=== PATIENT | male | born 1975 | race African-American/Black ===

== ENCOUNTER 2017-10-13 20:55 | Inpatient (IN) | payer MEDICAID, OTHER ==
--- NOTE | 2017-10-13 22:14 | ED ---
General Adult HPI - General Chief complaint: Psychiatric Symptoms Stated complaint: Petition Time Seen by Provider: 10/13/17 21:38 Source: patient, EMS, RN notes reviewed, old records reviewed Mode of arrival: EMS Limitations: no limitations - History of Present Illness Initial comments: She was sent in for examination. His counselors state that he has had some psychotic movements saying that he wants to be with his mother who is . The patient states he has no issues. - Related Data Home Medications Medication Instructions Recorded Confirmed QUEtiapine [SEROquel] 100 mg PO HS 10/13/17 10/13/17 lamoTRIgine [LaMICtal] 50 mg PO HS 10/13/17 10/13/17 Allergies Allergy/AdvReac Type Severity Reaction Status Date / Time No Known Allergies Allergy Verified 10/13/17 21:10 Review of Systems ROS Statement: Those systems with pertinent positive or pertinent negative responses have been documented in the HPI. review of systems at this time the patient's denying any problems. The patient was brought emergency room on a pickup order for psychiatric evaluation because of statements he made to his psych counselors. They're impression is depression , psychotic break. ROS Other: All systems not noted in ROS Statement are negative. Past Medical History Past Medical History: No Reported History Additional Past Medical History / Comment(s): DEPRESSION, BIPOLAR, schizophrenia History of Any Multi-Drug Resistant Organisms: None Reported Past Surgical History: No Surgical Hx Reported Past Anesthesia/Blood Transfusion Reactions: No Reported Reaction Past Psychological History: Bipolar, Depression, Schizophrenia Smoking Status: Current every day smoker Past Alcohol Use History: None Reported Past Drug Use History: None Reported General Exam - General Exam Comments Initial Comments: General: The patient is awake and alert, in no distress, and does not appear acutely ill. denying any problems states she was brought here against his will. The patient was on a pickup order for psychiatric evaluation for things he did and said. Vital signs stable Eye: pupils normal, extraocular movement normal. Ears, nose, mouth and throat: There are moist mucous membranes . Neck: The neck is supple, denies neck pain Cardiovascular: S1 and S2 no murmur Respiratory: lungs are clear. Denies any shortness of breath Gastrointestinal: denies nausea vomiting or diarrhea. Back: denying back pain. full range of motion of upper and lower extremities. Neurological: no evidence of any focal or lateralizing findings. Skin: Skin is warm and dry and no rashes or lesions are noted. Psychiatric: sent for psychiatric evaluation on a court-ordered pickup because of statements he said and behavior he was displaying. Patient was stating that he wanted to be with his mother who is . Limitations: no limitations Course Vital Signs 10/13/17 21:03 Temperature 98.9 F Pulse Rate 71 Respiratory 18 Rate Blood Pressure 127/67 O2 Sat by Pulse 96 Oximetry Medical Decision Making - Medical Decision Making Medical decision making; this is a patient who was a court-ordered pickup for evaluation by the psychiatric department. Psychiatric nurse evaluated the patient spoke with the psychiatrist and he'll be admitted to 3 . I have completed a certificate for admission. With a diagnosis of psychosis. Disposition Clinical Impression: Psychosis Disposition: TRANSFER TO PSYCH HOSP/UNIT Condition: Serious
[2017-10-13] MEDS ORDERED: ACETAMINOPHEN TAB 325 MG TAB PO PRN (23:18)
[2017-10-13] MEDS ORDERED: MAGNESIUM HYDROXIDE 2,400 MG/10 ML CUP PO PRN (23:18)
[2017-10-13] MEDS ORDERED: MAG HYDROX/AL HYDROX/SIMETH 30 ML CUP PO PRN (23:18)
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
[2017-10-14] MEDS: QUEtiapine 50 MG TAB PO SCH (12:36)
[2017-10-14 14:04] LABS: ALT 31 U/L (21-72); AST 27 U/L (17-59); Albumin 4.9 g/dL (3.5-5.0); Alkaline Phosphatase 91 U/L (38-126); Anion Gap 12 mmol/L; Blood Urea Nitrogen 12 mg/dL (9-20); Calcium 10.7 mg/dL (8.4-10.2); Carbon Dioxide 27 mmol/L (22-30); Chloride 102 mmol/L (98-107); Glucose 106 mg/dL (74-99); Potassium 4.5 mmol/L (3.5-5.1); Sodium 141 mmol/L (137-145); Total Bilirubin 2.8 mg/dL (0.2-1.3); Total Protein 7.9 g/dL (6.3-8.2)
[2017-10-14 14:19] LABS: T4, Free (Free Thyroxine) 1.45 ng/dL (0.78-2.19)
--- NOTE | 2017-10-14 14:45 | P.HP ---
Psychiatric H&P - . History & Physical: Allergies Allergy/AdvReac Type Severity Reaction Status Date / Time No Known Allergies Allergy Verified 10/13/17 21:10 Vital Signs Temp 97.9 F 10/14/17 07:16 Pulse 59 L 10/14/17 07:16 Resp 16 10/14/17 07:16 BP 115/60 10/14/17 07:16 Pulse Ox 98 10/14/17 00:39 Intake & Output 10/13/17 10/14/17 10/14/17 18:59 06:59 18:59 Weight 66.5 kg 66.5 kg Identifying Information: Mr. Enrike Bailey is a 42 year-old unemployed never male, who lives with his girlfriend, and has a past psychiatric history of schizophrenia. CC: "I don't know why this lady brought me here " History of Present Illness: The patient has been brought to the ED for psychiatric evaluation based on a petition by his returned case inspector at [facility]. The patient left to the returned case inspector more than 15 voicemails and just couple of hours and was a stating that he wanted talk to her. The patient was talking about seeing ghosts at his house and who was talking to the mother. It is not known that if patient has been taking his psychiatric medication or no but he is recently started on Seroquel and Lamictal by [facility] providers. The patient was presented very irritable but redirected. He was loud with racing thoughts and flight of ideas moving around at the exam room and couldn't sit still. The patient reported has been seeing orbs at his house and he has been feeling as "many people talking in my head". He couldn't recognize what this voices talking about but he felt very stressed about the voices. Initially, he was angry about admission, but he agreed to received better help for adjustment of medications and stabilizer his symptoms and he signed voluntary admission. Patient presented very paranoid and reported feeling paranoid around people. He reported high anxiety with no stop racing thoughts. He reported very poor and interrupted sleep for past few weeks and he believes lost good amount of weight because he is not eating good. Patient denies feeling hopeless, worthless, or helpless. Patient denies lack of interest, or poor energy. Patient reported no suicidal thought, plans or intentions. Patient denies obsessions, panic attacks, nightmares, flashbacks, hyper vigilance, avoidance behavior, or any specific phobias. Past Psychiatric History: Hospitalizations: Multiple prior psychiatric hospitalizations at least more than 7-8 times. Reported his first hospitalization was at early 20s. As per [facility] , he has 7 hospitalizations from 2001 till 2015. He was admitted at the same unit in 2015 which was his last hospitalization. Medications Trials: Reported he will not take any Zyprexa or Depakote because he was maintained on both medications for more than 20 years and they are not working for him. He was recently on Seroquel and Lamictal as per [facility] report Prior Psychiatrist: Last time seen by a psychiatrist was July 2017 at [facility] Prior Suicidal attempts/ Thoughts: Reported prior suicidal attempts "when I was younger, I tried to cut myself" Prior Self injurious behavior: Denies. Substance use history: Alcohol: very infrequent, might be once every couple of months. Last time was yesterday when he used 1-2 beers Opiate: Denies Cocaine: Denies Cannabis: Very infrequent used of marijuana, reported on regular basis every month or every other month. He reported had smoked marijuana yesterday Nicotine: 0.5 PPD for about 20 years Prior SUDs Treatment including: denies any prior drug treatment either inpatient or outpatient. Family history: Family history of mental illnesses: Mother and 2 of his sisters suffered from mental illnesses but not sure what was their diagnoses. Mother last year Family history of suicidal: Denies any Family history of SUDs: denies up to his knowledge Social History: Current living situation: Lives at his own place for about 3 years. He lives with his girlfriend for past 20 years Employment: unemployed, on SSD Education: up to 9th grade Recreational interest: Sports, Movies Legal history: Denies any legal problems or have been arrested for past 12 months. He reported was arrested for 17 days last year but no clear for what reasons. Past history of trauma (physical/psychological/sexual): Patient denies history of abuse, or any psychological trauma. Past medical history:Denies any Allergies: Denies any food allergy. NKDA Mental status examination; Appearance: The patient appears stated age, disheveled in hospital gown, no specific features. Gait/posture:normal gait, Normal arm was swinging: No abnormal movements. Attitude and behavior: not fully engaged, partially cooperative, good eye contact. Motor activity: agitated and increased activities Speech:Loud, pressured and sometimes bizarre with flight of ideas Mood:irritable and agitated Affect: Expansive Thought form: flight of ideas, circumstantial Thought content: Paranoid ideation, denies suicidal thoughts, denies homicidal thoughts, denies intentions or plans. Perception: Reported auditory and visual hallucinations Attention: No impairment. Patient was able to repeat serial 5. Orientation: Patient patient was fully oriented to time place person and situation. Insight: Patient has limited insight about his psychiatric disorder. Judgment: Patient has limited judgment about his psychiatric treatment. History of Violence to self/others: Patient denies any history of violence or aggression toward self or others in the past 6 months. Patient strengths: Optimism to change. SSD. Housing. Access to services Patient weaknesses: Poor coping skills. Poor compliance with treatment. Financial [id number] formulation: Patient may have familial, and possibly genetic, predisposition to his mental illness, given his positive family history. Other biological factors predisposing him to current presentation are; substance use disorder. Social predisposing factors include: poor compliance with treatment. Current biological precipitating factors include disruption of brain neurotransmitters and lack of mood stabilizing effect/ antidepressant effect, beside recent exposure to drugs. Precipitating psychological factors are depressive/ anxiety/ psychotic symptoms. Precipitating social factors include exposure to drugs. Protective biological factors from future decompensation: To continue psychiatric medications (mood stabilizer/ antidepressant), and continue recovery treatment for SERAFIN. Psychological protective factors: psychotherapy to address pathological traits. Assessment: Schizophrenia Rule out Schizoaffective disorder, Bipolar type. Treatment/ plan: Patient has been admitted to inpatient psychiatric level of care-initially involuntary then he signed voluntary Check: as per unit routine Diet: Regular Lab ordered on admission: CMP, CBC, TSH - ordered UDS on admission- ordered PSYCHIATRIC MEDICATIONS Seroquel 50 mg am and 100 mg HS for psychotic symptoms and as mood stabilizer Lamictal 25 mg daily at bed time as mood stabilizer. Discussed with the patient to start on a different antipsychotics either Invega or Risperidone to consider long acting injection after discharge but he refused and was fixated on restart on Seroquel. PRN medications Non-psychiatric medications: None Psycho-education about: Nature of psychiatric illnesses Adherence to treatment Participation in groups/ individual therapy, and other activities []Pt has been educated and counseled about tobacco use and will continue MET to encourage patient quitting Consent obtained to start new medication 10/14/17 14:21
[2017-10-14 16:16] LABS: Basophils % (A) 0 %; Eosinophils # (A) 0.1 k/uL (0-0.7); Eosinophils % (A) 1 %; HGB 17.8 gm/dL (13.0-17.5); Lymphocytes # (A) 1.1 k/uL (1.0-4.8); Lymphocytes % (A) 11 %; MCH 29.7 pg (25.0-35.0); MCHC 31.1 g/dL (31.0-37.0); MCV 95.5 fL (80.0-100.0); Mean Platelet Volume 7.5; Monocytes # (A) 0.5 k/uL (0-1.0); Monocytes % (A) 5 %; Neutrophils # (A) 8.2 k/uL (1.3-7.7); Neutrophils % (A) 81 %; Platelet Count 290 k/uL (150-450); RDW 15.9 % (11.5-15.5)
[2017-10-14 16:20] LABS: HCT 57.3 % (39.0-53.0)
[2017-10-14 16:24] LABS: Cholesterol 165 mg/dL (<200); HDL Cholesterol 65 mg/dL (40-60); LDL Cholesterol,Calculated 87 mg/dL (0-99); Triglycerides 64 mg/dL (<150)
[2017-10-14 16:34] VITALS: BMI 21.6
[2017-10-14] MEDS ORDERED: QUEtiapine 100 MG TAB PO SCH (21:00)
[2017-10-14] MEDS ORDERED: lamoTRIgine 25 MG TAB PO SCH ×2 (21:00)
[2017-10-15 01:34] LABS: Hemoglobin A1C 5.4 % (4.0-6.0)
[2017-10-15] MEDS: QUEtiapine 50 MG TAB PO SCH (08:49)
[2017-10-15 09:14] LABS: ALT 33 U/L (21-72); AST 24 U/L (17-59); Albumin 4.6 g/dL (3.5-5.0); Alkaline Phosphatase 78 U/L (38-126); Anion Gap 11 mmol/L; Blood Urea Nitrogen 12 mg/dL (9-20); Calcium 10.5 mg/dL (8.4-10.2); Carbon Dioxide 29 mmol/L (22-30); Chloride 104 mmol/L (98-107); Cholesterol 160 mg/dL (<200); Glucose 93 mg/dL (74-99); HDL Cholesterol 55 mg/dL (40-60); LDL Cholesterol,Calculated 88 mg/dL (0-99); Potassium 4.3 mmol/L (3.5-5.1); Sodium 144 mmol/L (137-145); Total Bilirubin 2.5 mg/dL (0.2-1.3); Total Protein 7.6 g/dL (6.3-8.2); Triglycerides 86 mg/dL (<150)
[2017-10-15] MEDS ORDERED: WATER FOR INJECTION, STERILE 10 ML IV ONE (09:35)
[2017-10-15] MEDS: ZIPRASIDONE 20 MG VIAL IM PRN (09:45)
[2017-10-15] MEDS: LORazepam 2 MG/ML INJ IM PRN (09:45)
--- NOTE | 2017-10-15 17:32 | P.PN ---
Progress Note - Text Date of service: 10/15/2017 Subjective: The patient has been seen today as follow-up, chart reviewed, case discussed with the treatment team. Patient slept about less than 5 hours last night. Patient has been not going to any groups and other unit activities. Patient reports fair appetite. The patient still disheveled, isolating and has minimal and has minimal interaction with others. Patient has very explosive incident today when he was medicated with Goedone and Ativan PRN due to severe agitation and screaming in the unit. Patient was requesting discharge after he received a phone call from his GF and he got very angry about something related to the phone call. Patient presented today with more organized speech and thoughts but he still paranoid and very guarded. He denies any current suicidal or homicidal thoughts and he couldn't complete the evaluation that he left the room and stated "I am feeling tired". Even patient denies any A/V hallucinations but he looks internally preoccupied. The patient is compliant with his medications and denies any adverse reactions. Review of other systems: Patient denies any physical symptoms besides what has been mentioned above. No breathing problems, no chest pain reported today. Objective: Vitals has been reviewed. Mental status examination; Appearance: The patient appears stated age, disheveled in hospital gown, no specific features. Gait/posture:normal gait, Normal arm was swinging: No abnormal movements. Attitude and behavior: not fully engaged, partially cooperative, good eye contact. Motor activity: agitated and increased activities Speech:Loud, pressured and sometimes bizarre with flight of ideas Mood:irritable and agitated Affect: Expansive Thought form: flight of ideas, circumstantial Thought content: Paranoid ideation, denies suicidal thoughts, denies homicidal thoughts, denies intentions or plans. Perception: Reported auditory and visual hallucinations Attention: No impairment. Orientation: Patient patient was fully oriented to time place person and situation. Insight: Patient has limited insight about his psychiatric disorder. Judgment: Patient has limited judgment about his psychiatric treatment. Assessment: Schizophrenia Rule out Schizoaffective disorder, Bipolar type. Plan: Continue with inpatient psychiatric hospitalization for monitoring and continue treatment. Continue group therapy and other unit activities. Continue psychiatric medications: Will increase Seroquel 100 mg am and 200 mg HS for psychotic symptoms and as mood stabilizer Increase Lamictal 50 mg daily at bed time as mood stabilizer. Continue monitor patient's symptoms.
[2017-10-15] MEDS: IBUPROFEN 600 MG TAB PO PRN (19:18)
[2017-10-15] MEDS: lamoTRIgine 25 MG TAB PO SCH (21:21)
[2017-10-15] MEDS: QUEtiapine 200 MG TAB PO SCH ×2 (21:21→21:24)
[2017-10-15] MEDS: methylPREDNISolone 4 MG TAB TAPER PO SCH (21:22)
[2017-10-15] MEDS: CYCLOBENZAPRINE 5 MG TAB PO PRN (22:03)
--- NOTE | 2017-10-15 22:15 | P.PN ---
Subjective Progress Note Date: 10/15/17 Principal diagnosis: back pain Called to see patient by nursing regarding acute onset back pain. Patient seen and examined in library. He states that he was acting out today after receiving a phone call and necessitated the use of 2 IM shots. He then lay down in bed and slept through lunch and woke up prior to dinner. Upon waking his back felt slightly tight however he continued to ambulate. After eating dinner he went to lift his tray and it felt like it was too heavy and made his back pain worse. After that he felt as though he could not walk and called over the nurse. They assisted him into a wheelchair. He denies any recent trauma to the back area including falls. He has never had a back injury in the past. He has not had any bowel or bladder incontinence. He is not having any numbness, tingling, or weakness. Objective - Vital Signs Vital signs: Vital Signs Temp 98.5 F 10/15/17 06:47 Pulse 57 L 10/15/17 06:47 Resp 16 10/15/17 06:47 BP 102/58 10/15/17 06:47 Pulse Ox 98 10/14/17 00:39 - Exam General: non toxic, mild distress, appears at stated age Derm: warm, dry Head: atraumatic, normocephalic, symmetric Cardiovascular: S1S2 reg, no murmur, positive posterior tibial pulse bilateral, Lungs: CTA bilateral, no rhonchi, no rales , no accessory muscle use Ext: no gross muscle atrophy, no edema, no contractures Neuro: CN II-XI grossly intact, light touch intact all 4 extremities, finger to nose normal, has increased pain with muscle strength testing but muscle strength is 5 out of 5 in bilateral lower extremities and bilateral upper extremities Psych: Alert, oriented, appropriate affect Back: No point tenderness over spinous processes, pain over right SI joint and L5 area with significant lumbar paraspinal muscle spasm on the right - Labs CBC & Chem 7: 10/14/17 13:20 10/15/17 08:03 Labs: Abnormal Lab Results - Last 24 Hours (Table) 10/14/17 10/15/17 Range/Units 13:20 08:03 Calcium 10.5 H (8.4-10.2) mg/dL Total Bilirubin 2.5 H (0.2-1.3) mg/dL Vitamin D 25-Hydroxy 12.8 L (30.0-100.0) ng/mL Assessment and Plan Assessment: Acute lumbar strain -Warm compresses as needed -Flexeril -Motrin -Medrol dosepak -Instructed nursing and patient to call if his pain should worsen. - Consult physical therapy Hypercalcemia, vitamin D deficiency - check PTH - start Vit D 3 2.000 units dialy Weight loss with decreased appetite -TSH normal - Continue Ensure - Will need PCP at [facility] and if is continues will need more follow-up- Dr. Chavez placed on discharge chart - at this point in time he is not due to any age related cancer screening - or course with his tobacco use at age 54 he should undergo low dose CT of the chest Tobacco abuse - counseled on cessation - nicotine replacement Anxiety - your psych management We'll not plan to re-see the patient unless back pain worsens. PTH ordered and pending. Thank you for allowing us to participate in the care of this patient. We will follow peripherally. Do not hesitate to contact us with questions. Someone can be reached from the [facility] hospitalist group at all hours of the day at [phone].
[2017-10-16] MEDS ORDERED: methylPREDNISolone 4 MG TAB TAPER PO SCH (09:00)
[2017-10-16] MEDS: QUEtiapine 100 MG TAB PO SCH (09:47)
[2017-10-16] MEDS: methylPREDNISolone 4 MG TAB TAPER PO SCH (09:48)
[2017-10-16] MEDS: CHOLECALCIFEROL 1,000 UNIT TAB PO SCH (13:08)
[2017-10-16] MEDS: CYCLOBENZAPRINE 5 MG TAB PO PRN ×2 (13:08→21:21)
[2017-10-16] MEDS: IBUPROFEN 600 MG TAB PO PRN (13:08)
--- NOTE | 2017-10-16 14:56 | P.PN ---
Progress Note - Text interval history: The patient is found in his room. The patient seated in a wheelchair and states he's concerned he can't walk. Previous progress notes reviewed. The patient was observed yesterday having an acute episode of agitation. He does have insight into that and reports he is trying to control his behavior better. He has been started on Lamictal and Seroquel was recently titrated. He reports compliance with medication. He states he was able to sleep throughout the night. Mental status exam: The patient is an alert -Martiniquais male he is dressed in hospital attire he seated in a wheelchair. He is pleasant and cooperative. He is hyperverbal there is some tangential quality to his thought process. He reports no thoughts of harming himself or others. He appears he continues to have a delusional thought process. He demonstrates no verbal or physical aggressiveness. Insight and judgment are impaired overall. Plan: The patient will continue on his current medications we will monitor for safety. Vital signs reviewed. We will consider titrating his medications further during the course of his stay. He is encouraged to fully participate in the milieu.
[2017-10-16] MEDS: lamoTRIgine 25 MG TAB PO SCH (21:21)
[2017-10-17] MEDS: methylPREDNISolone 4 MG TAB TAPER PO SCH (08:47)
[2017-10-17] MEDS: QUEtiapine 100 MG TAB PO SCH (08:47)
[2017-10-17] MEDS: CYCLOBENZAPRINE 5 MG TAB PO PRN (11:32)
[2017-10-17] MEDS: CHOLECALCIFEROL 1,000 UNIT TAB PO SCH (12:11)
--- NOTE | 2017-10-17 15:24 | P.PN ---
Progress Note - Text Interval history: The patient is found in the hallway he follows me to an interview room. At length he discusses his frustration with his significant other. It appears he continues to receive phone calls from her and becomes agitated with a result of those conversations. Staff have encouraged him not to speak with her while on the mental health unit until symptoms are further stabilized and he is agreeable. He reports he was able to sleep last night appetite stable. He has been compliant with medications. Mental status exam: The patient is a tall thin -[place] Islander male he is mobile with a wheelchair but does get up and ambulate into the interview room without difficulty. Eye contact is appropriate. He is pleasant and cooperative. He is quite verbose and we'll continue talking for several minutes unless interrupted. He will demonstrate some tangential quality to his thinking. As a conversation continues it appears he does still have some delusional thought content. Insight and judgment limited. He demonstrates no verbal or physical aggressiveness. He reports having no acute suicidal or homicidal ideation intent or plan. Plan: The patient will continue his current medications. Consider titrating Seroquel and/or Lamictal further during the course of the hospitalization. Vital signs reviewed. He is encouraged to refrain from receiving phone calls that will be distressing.
[2017-10-17] MEDS: lamoTRIgine 25 MG TAB PO SCH (21:23)
[2017-10-17] MEDS: IBUPROFEN 600 MG TAB PO PRN (23:08)
[2017-10-17] MEDS: hydrOXYzine PAMOATE 25 MG CAP PO PRN (23:08)
[2017-10-18] MEDS: methylPREDNISolone 4 MG TAB TAPER PO SCH ×2 (10:14→10:23)
[2017-10-18] MEDS: QUEtiapine 100 MG TAB PO SCH ×4 (10:15→18:26)
[2017-10-18] MEDS: hydrOXYzine PAMOATE 25 MG CAP PO PRN (10:15)
[2017-10-18] MEDS: IBUPROFEN 600 MG TAB PO PRN (10:16)
[2017-10-18] MEDS ORDERED: WATER FOR INJECTION, STERILE 10 ML IV ONE (10:48)
[2017-10-18] MEDS ORDERED: ZIPRASIDONE 20 MG VIAL IM ONE (10:48)
[2017-10-18] MEDS: LORazepam 2 MG/ML INJ IM PRN (10:49)
[2017-10-18] MEDS: ZIPRASIDONE 20 MG VIAL IM PRN (10:49)
[2017-10-18] MEDS: CHOLECALCIFEROL 1,000 UNIT TAB PO SCH (13:07)
[2017-10-18] MEDS ORDERED: HALOPERIDOL LACTATE 5 MG/ML 1 ML VIAL IM PRN (16:39)
[2017-10-18] MEDS ORDERED: diphenhydrAMINE 50 MG/ML 1 ML VIAL IM PRN (16:40)
[2017-10-18] MEDS ORDERED: LORazepam 2 MG/ML INJ IM PRN (16:42)
[2017-10-18] MEDS: IBUPROFEN 600 MG TAB PO SCH ×3 (18:15→21:13)
[2017-10-18] MEDS ORDERED: QUEtiapine 100 MG TAB PO SCH (21:00)
[2017-10-18] MEDS: QUEtiapine 200 MG TAB PO SCH (21:13)
[2017-10-18] MEDS: lamoTRIgine 100 MG TAB PO SCH (21:13)
--- NOTE | 2017-10-19 06:38 | PN ---
PROGRESS NOTE DATE OF SERVICE: 10/18/2017 CHIEF COMPLAINT: The patient was admitted due to increasing problems with hallucinations and delusional thinking. He had not been taking psychotropic medications. He had agitation and complaining that "many people are talking in my head". He was admitted on petition for involuntary hospitalization. INTERVAL HISTORY: The patient has been doing fair. At best he continues to have a lot of paranoid thinking. He talks about distrust of much that is going on around him. He does not believe that people are giving him medications that are ordered and believes that somehow there is substitutes that may do him harm. He talked at length about what he felt were real events going on around him leading up to his hospitalization. He made comments about having cell phone evidence of some blue objects floating through the air at his house. He said he has shown the pictures to others who believe him. He had taken medications though says that he was not given certain medications. Staff report that earlier in his hospitalization, he had some periods where he was calm and quiet in his manner. On the other hand, he apparently has had episodes where he can get quite severely agitated. He had required IM Geodon and Ativan. He says that after the injections Wednesday, he has had low back pain ever since that has made it difficult for him to walk. He apparently had been compliant with medications and reported no problems or side effects though now he is saying that he will not take any medications. MENTAL STATUS: Patient was quite restless. Eye contact was poor. He tended to ramble. He answered some questions though mostly he was tangential. His affect was quite intense. He had an angry manner at some points and then at other points he was crying quite intensely. He had difficulty with ambulation at the end of his interview. His mood was depressed. He was significantly distressed. He evidenced considerable paranoid thinking. ASSESSMENT: I will continue the current diagnosis and treatment plan. I discussed medication issues with the patient and encouraged him to continue on Seroquel, which he says is the medicine that he would feel comfortable taking. At this point, it is not clear that he will agree to take any medications. I will increase his Seroquel to 100 mg twice a day 400 mg at bedtime. We will have p.r.n. medications available of Haldol, Ativan and Benadryl. I had an extensive discussion with the patient regarding medication issues and encouraged the patient to review any medications he is to take with the nurse and that also we can get pharmacy to help support him in knowing that he is getting the proper medications. We will continue to focus on stabilization and discharge planning. MARGY / JOSIE: [id number] /
[2017-10-19] MEDS: methylPREDNISolone 4 MG TAB TAPER PO SCH ×2 (10:00→10:52)
[2017-10-19] MEDS: QUEtiapine 100 MG TAB PO SCH ×3 (10:01→18:18)
[2017-10-19] MEDS: IBUPROFEN 800 MG TAB PO SCH ×4 (10:01→20:27)
[2017-10-19] MEDS: CHOLECALCIFEROL 1,000 UNIT TAB PO SCH (12:45)
[2017-10-19] MEDS: QUEtiapine 200 MG TAB PO SCH (20:27)
[2017-10-19] MEDS: lamoTRIgine 100 MG TAB PO SCH (20:28)
[2017-10-20] MEDS: IBUPROFEN 800 MG TAB PO SCH ×3 (09:14→21:08)
[2017-10-20] MEDS: methylPREDNISolone 4 MG TAB TAPER PO SCH (09:15)
[2017-10-20] MEDS: QUEtiapine 100 MG TAB PO SCH ×2 (09:15→15:47)
--- NOTE | 2017-10-20 10:15 | PN ---
PROGRESS NOTE DATE OF SERVICE: 10/19/2017. CHIEF COMPLAINT: The patient was admitted due to increasing problems with hallucinations, delusional thinking, agitation, and not taking medications. He talked about "many people are talking in my head." He was admitted on petition. INTERVAL HISTORY: Patient continues to struggle. He spends much time in his room. He is very resistant to taking medications. He is not able to engage in any kind of productive conversation. Some of the time when he is approached he will go into his room in bed and then simply pull the covers over his head and will just say loudly that he is not going to listen to anything. I have met with him today with his [facility] case aide. He was in a quite a regressed state when we talked to him. He had the behavior as noted above. He has not been taking medications. He has not been going to groups. He does not really engage at all with staff, though he will interact some with peers. He has not had change in his general health. MENTAL STATUS: The patient was seen on the unit a few different times wandered in the interiano. When I talked to him he was lying in bed. He had the covers pulled completely over his head and was refusing to talk. He was significantly distressed. ASSESSMENT: I will continue the current diagnosis and treatment plan. We will reinitiate a petition for involuntary treatment [facility] case aide will initiate a petition. We will continue to focus on stabilization and discharge planning. MARGY / JOSIE: [id number] /
--- NOTE | 2017-10-20 10:27 | PN ---
PROGRESS NOTE DATE OF SERVICE: 10/20/2017. CHIEF COMPLAINT: The patient was admitted due to increasing problems with hallucinations, delusions, agitation, and complaining of voices in his head. He was not taking medications. He was admitted on petition. INTERVAL HISTORY: The patient has made a major turnaround from how he has been since that admission. He said he took his medications last evening. He said he had revelation that when he was talking to me and his window caser that afterwards he realized that he was in quite a regressive mode that is out of his character. He said he did not want to be that way as he wanted to have a good mood to be able to get out of the hospital. He was agreeing to take medications. He took his Seroquel last night and said he slept the whole night and woke in a much better mood. Today, his thoughts are clear and he says that he is very willing to cooperate with all aspects of treatment. He was able to discuss some discharge planning issues. He said he was very sorry about the behavior that he has had since admission. He said he attended group last evening and he is eager to keep up with all of the groups. When I talked to him about the petition process, he initially was distressed, thinking that he would need to be in the hospital for 90 days of treatment. When he understood the parameters of the treatment process he said he was very comfortable with the whole idea because he wanted to cooperate fully with mental health. He has not had change in his general health. He tolerates his psychotropic medications. MENTAL STATUS: Patient was a little restless. He gave good eye contact. Speech was clear. He was spontaneous and interactive. His affect was in a good range. He smiled. He was friendly. His mood was even. He was not distressed. There was no outward evidence of thought disorder. ASSESSMENT: I will continue the current diagnosis and treatment plan. I reviewed medication issues with the patient. We will continue with Seroquel 100 mg twice a day, 400 mg at bedtime. I discussed the option of going back to Zyprexa which he had taken previously, though he said he preferred staying with Seroquel. He said he would like to possibly have a medication available during the daytime if he does get into an anxious state. I discussed that the daytime doses of Seroquel elected to help him with that. He was in agreement. We talked about discharge planning issues. I would anticipate discharge possibly early next week. MARGY / LEILANIN: [id number] /
[2017-10-20] MEDS: CHOLECALCIFEROL 1,000 UNIT TAB PO SCH (12:32)
[2017-10-20] MEDS: lamoTRIgine 100 MG TAB PO SCH (20:54)
[2017-10-20] MEDS: QUEtiapine 200 MG TAB PO SCH (20:54)
[2017-10-21] MEDS: IBUPROFEN 800 MG TAB PO SCH ×3 (09:02→21:08)
[2017-10-21] MEDS: QUEtiapine 100 MG TAB PO SCH ×2 (09:02→16:43)
[2017-10-21] MEDS: CHOLECALCIFEROL 1,000 UNIT TAB PO SCH (09:03)
--- NOTE | 2017-10-21 19:40 | PN ---
PROGRESS NOTE DATE OF SERVICE: 10/21/2017 CHIEF COMPLAINT: The patient was admitted due to increasing problems with hallucinations, delusions, agitation, and complaining of voices in his head. He was not taking medications. He was admitted on petition. INTERVAL HISTORY: Patient has been doing fairly well. He had a quiet evening last night. He said he slept well today. He has been up and about. He has been quite energized at times. He can often get into times where he gets somewhat intense. He will laugh in a boisterous manner. It is not clear that he is actually showing any manic type symptoms as he is able to interact appropriately on . He does not show flight of ideas, pressured speech or being hyperverbal. He has shown improvement in his mood. He has a better outlook. He continues to talk appropriately about discharge planning issues and what he needs to do to stay on track with his medications. He feels his medications are helping him quite significantly. He has not had change in his general health. He tolerates his psychotropic medications. MENTAL STATUS: Patient gave good eye contact. He sat with a little restlessness, though not significantly so. His thoughts were clear and coherent. He answered questions appropriately. His affect was in a reasonable range. He smiled. He was friendly. His mood was even. He did not appear to be distressed. ASSESSMENT: I will continue the current diagnosis and treatment plan. I will continue psychotropic medications the same. We will aim to discharge the patient tomorrow. We are coordinating with [facility] for followup planning. MMCHITO / LEILANIN: [id number] /
[2017-10-21] MEDS: lamoTRIgine 100 MG TAB PO SCH (21:08)
[2017-10-21] MEDS: QUEtiapine 200 MG TAB PO SCH (21:09)
[2017-10-22 05:11] VITALS: BP 139/71; PULSE 99; RESP 18; TEMP 98.4
[2017-10-22] MEDS: IBUPROFEN 800 MG TAB PO SCH (09:31)
[2017-10-22] MEDS: QUEtiapine 100 MG TAB PO SCH (09:33)
--- NOTE | 2017-10-22 10:38 | DS ---
DISCHARGE SUMMARY DATE OF SERVICE: 10/22/2017 DATE OF ADMISSION: 10/13/2017 DATE OF DISCHARGE: 10/22/2017 ADMISSION AND DISCHARGE DIAGNOSIS: Schizophrenia with bipolar features. HISTORY OF PRESENTING ILLNESS: The patient is a 42-year-old male he lives with his girlfriend. He presented to the emergency room on petition by his [facility] caseworker protective services for disorganized behavior including leaving 15 voice mails in a couple hours to her. He was talking about seeing ghosts and his mother. He was irritable and unable to be redirected. He had racing thoughts, flight of ideas, excessive energy. His last hospitalization at this facility was October 19, 2014 when he presented in similar circumstances with not taking medications, having disorganized behavior and having manic symptoms currently. The patient had missed 2 recent appointments. He apparently was not taking medications. Current psychotropic medications included Lamictal 50 mg a day and Seroquel 100 mg a day. He was admitted for further evaluation. SUBSTANCE USE HISTORY: Certain. PAST MEDICAL HISTORY AND PHYSICAL EXAM: Dr. Daigle. MENTAL STATUS EXAM: The patient had a disheveled appearance. He had normal gait. Good eye contact. He was agitated and had increased psychomotor activity. Speech was pressured with bizarre thoughts and flight of ideas. Mood was irritable. Affect expansive. He had paranoid thoughts. COURSE OF HOSPITALIZATION: The patient was admitted for comprehensive medical psychiatric and psychosocial evaluation. We engaged the patient in individual and group therapeutic activities. Early on during his hospitalization, the patient presented with a quite intense manner. He continues with a lot of paranoid thinking. He made comments frequently about not trusting things that were going on around him on the unit. He would make comments about believing his mother was calling him on the telephone though she is . He talked about having cellphone evidence about seeing blue "orbes" floating around his house and he believed that other people had seen the same thing. He would sleep fair. There were periods where he would refuse to eat, believing he was being poisoned. He had some episodes of agitation requiring IM medications including IM Geodon and Ativan as well as IM Haldol and Ativan. It was noteworthy that the medications would help calm some of his high-risk behavior, though after the shot he would start complaining of terrible pain at the injection site. He seemed to indicate that it was making it hard for him to walk. There were times where he would fight to get up out of a chair saying that the pain was so intense. He blamed all of his pain on having received the shots and said he did not have any problems until he received the IM medications. He was very distressed over the situation. It is noteworthy that [facility] caseworker protective services came in and her and I had a meeting with the patient in his room. He pulled the covers completely over his head and refused to talk. He yelled out in a somewhat loud manner to go away. He said later that he actually put his hands over his ears, so he could not hear anything. He had been taking medications intermittently, though at that point, he had gone 2 days without taking medications. He believed that the Seroquel that had been administered was not in fact Seroquel, though some poison. Later on that day, after the meeting with his caseworker protective services and myself, he had a dramatic turnaround. He came to my office and began saying that he was ashamed of his behavior. He wanted to fully cooperate with mental health. He was calm, pleasant. He smiled from that point on. He started going to groups. He would interact with others. He was quite social. At times he could get intense where he would be with other people, he would start laughing loudly and joking. There was some concern that he might be showing manic symptoms. However, he also was sleeping through the night and when he would come to a one-to-one situation, he would talk calmly with normal train of thought. His thoughts were organized, coherent and goal-directed. There was no indication that he had any thought disorder. Any comments about his mother or other paranoid references abated completely. He was comfortable with his medications. We titrated up his Seroquel to 100 mg twice a day, 400 mg at bedtime. He was very insistent on the idea that when he went home, he wanted to be sure he could take some medications in the daytime that might help calm him if he got into anxiety. He was able to appropriately engage in discharge planning. CONDITION AT DISCHARGE: Patient was stable. Mood was euthymic. There was no indication of thought disorder. There were no indications of risk of harm to self or others. He tolerated medications well. RECOMMENDATIONS AND FOLLOWUP: The patient is discharged to home. DISCHARGE MEDICATIONS: 1. Lamictal 100 mg at bedtime. 2. Seroquel 100 mg twice a day,. 400 mg at bedtime. 3. Vistaril 50 mg 2 times a day as needed for anxiety. 4. Flexeril 5 mg 3 times a day as needed for muscle tension. 5. Vitamin D3 two thousand units daily. He has a followup appointment with [facility] 10/27/2017 at 4:30 pm. He will be followed up by Dr. Chavez in 1 week. MMDENNISL / IJN: [id number] /
[2017-10-22] MEDS: CHOLECALCIFEROL 1,000 UNIT TAB PO SCH (11:20)
[2017-10-22] MEDS ORDERED: CYCLOBENZAPRINE 5 MG TAB PO SCH (21:00)
[2017-10-22] MEDS ORDERED: QUEtiapine 400 MG TAB PO SCH (21:00)
[2017-10-22] MEDS ORDERED: hydrOXYzine PAMOATE 25 MG CAP PO SCH (21:00)
== END 2017-10-22 12:39 | disposition home or self-care (01) | DRG 885 ==
LOC: EC 20:55 → 3MHU 23:14
PROVIDERS: ADMIT Psychiatry & Neurology Psychiatry; ATTEND Psychiatry & Neurology Psychiatry
DX: F25.0 Schizoaffective disorder, bipolar type (principal); E83.52 Hypercalcemia; E55.9 Vitamin D deficiency, unspecified; F17.200 Nicotine dependence, unspecified, uncomplicated; F41.9 Anxiety disorder, unspecified; S39.012A Strain of muscle, fascia and tendon of lower back, initial encounter; Z79.899 Other long term (current) drug therapy
CPT/HCPCS: 80053; 80061; 82075; 82306; 83036; 83970; 84439; 84443; 85025; 99285

== ENCOUNTER 2019-03-24 12:00 | Emergency (ER) | payer OTHER ==
[2019-03-24] MEDS ORDERED: HALOPERIDOL LACTATE 5 MG/ML 1 ML VIAL IM PRN (12:15)
[2019-03-24] MEDS ORDERED: LORazepam 2 MG/ML INJ IM PRN (12:15)
[2019-03-24] MEDS ORDERED: diphenhydrAMINE 50 MG/ML 1 ML VIAL IM PRN (12:16)
[2019-03-24 12:24] VITALS: RESP 18
[2019-03-24 12:53] LABS: Basophils % (A) 0 %; Eosinophils # (A) 0.1 k/uL (0-0.7); Eosinophils % (A) 1 %; HCT 53.1 % (39.0-53.0); HGB 17.2 gm/dL (13.0-17.5); Lymphocytes # (A) 2.8 k/uL (1.0-4.8); Lymphocytes % (A) 22 %; MCH 29.7 pg (25.0-35.0); MCHC 32.5 g/dL (31.0-37.0); MCV 91.4 fL (80.0-100.0); Mean Platelet Volume 5.9; Monocytes % (A) 8 %; Neutrophils # (A) 8.5 k/uL (1.3-7.7); Neutrophils % (A) 67 %; Platelet Count 391 k/uL (150-450); RDW 13.5 % (11.5-15.5); WBC 12.7 k/uL (3.8-10.6)
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
[2019-03-24 13:01] LABS: African American GFR (CKD) >90 (>60 ml/min/1.73 sqM); Alcohol 74 mg/dL; Anion Gap 15 mmol/L; Blood Urea Nitrogen 10 mg/dL (9-20); Calcium 10.5 mg/dL (8.4-10.2); Carbon Dioxide 18 mmol/L (22-30); Chloride 109 mmol/L (98-107); Glucose 112 mg/dL (74-99); Potassium 4.1 mmol/L (3.5-5.1); Sodium 142 mmol/L (137-145)
[2019-03-24 16:31] VITALS: BP 120/85; PULSE 79; TEMP 98
== END 2019-03-24 16:29 | disposition home or self-care (01) ==
LOC: EC 12:00
DX: F29 Unspecified psychosis not due to a substance or known physiological condition (principal); K08.89 Other specified disorders of teeth and supporting structures; D72.829 Elevated white blood cell count, unspecified; E87.2 Acidosis; F31.9 Bipolar disorder, unspecified; F20.9 Schizophrenia, unspecified; F17.200 Nicotine dependence, unspecified, uncomplicated; Z79.899 Other long term (current) drug therapy
CPT/HCPCS: 82075; 36415; 80048; 85025; 99284; 96372 ×3; G0480; J2060; J1200; J1630; 80320

== ENCOUNTER 2021-10-15 08:29 | Emergency (ER) | payer OTHER ==
[2021-10-15] MEDS ORDERED: HALOPERIDOL LACTATE 5 MG/ML 1 ML VIAL IM STA (08:32)
[2021-10-15] MEDS ORDERED: LORazepam 2 MG/ML INJ IM STA (08:32)
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
[2021-10-15 09:00] VITALS: RESP 18
[2021-10-15 18:13] VITALS: TEMP 98.5
[2021-10-16 00:30] VITALS: BP 154/79; PULSE 102
== END 2021-10-16 00:28 | disposition home or self-care (01) ==
LOC: EC 08:29
DX: F29 Unspecified psychosis not due to a substance or known physiological condition (principal); Z91.14 Patient's other noncompliance with medication regimen
CPT/HCPCS: 99284; 82075; 96372; J2060; J1630